=== PATIENT | female | born 1960 | race American Indian/Alaskan Native ===

== ENCOUNTER 2020-04-03 08:48 | Emergency (ER) | payer MEDICARE ==
[2020-04-03 08:53] VITALS: BP 135/96
[2020-04-03 09:13] LABS: Basophils # (Auto) 0.1 K/mm3 (0.0-0.1); Basophils % (Auto) 0.9 % (0.0-1.8); Eosinophils # (Auto) 0.2 K/mm3 (0.0-0.4); Hematocrit 42.4 % (30.3-42.9); Hemoglobin 13.8 gm/dl (10.1-14.3); Lymphocytes # (Auto) 2.9 K/mm3 (1.2-5.4); Lymphocytes % (Auto) 34.9 % (13.4-35.0); Mean Corpuscular HGB Conc 33 % (30-34); Mean Corpuscular Volume 88 fl (79-97); Monocytes # (Auto) 0.5 K/mm3 (0.0-0.8); Monocytes % (Auto) 6.6 % (0.0-7.3); Platelet Count 348 K/mm3 (140-440); Red Blood Count 4.81 M/mm3 (3.65-5.03); Red Cell Distribution Width 14.7 % (13.2-15.2)
[2020-04-03 09:29] LABS: Blood Urea Nitrogen 11 mg/dL (7-17); Calcium 10.7 mg/dL (8.4-10.2); Hemolysis Index 9
[2020-04-03 09:32] LABS: BUN/Creatinine Ratio 18
[2020-04-03 09:41] LABS: INR 0.9 (0.87-1.13)
[2020-04-03 09:42] LABS: Partial Thromboplastin Time 26.6 Sec. (24.2-36.6)
--- NOTE | 2020-04-03 10:08 | Emergency Department Report ---
ED Lower Extremity HPI - General Chief Complaint: Extremity Injury, Lower Stated Complaint: RT UPPER LEG PAIN Time Seen by Provider: 04/03/20 08:56 Source: patient, EMS Mode of arrival: Wheelchair Limitations: No Limitations - History of Present Illness Initial Comments: This is a 59-year-old female nontoxic, well nourished in appearance, no acute signs of distress presents to the ED with c/o of right leg pain several days. Patient denies any trauma or injuries. Patient denies any numbness, tingling, fever, chills, nausea, vomiting, chest pain, shortness of breath, headache, stiff neck. Patient denies any joint swelling or joint redness. Patient denies decreased range of motion. Patient stated has decreased gait due to pain. Patient denies any allergies, MD Complaint: leg injury -: days(s) Injury: Leg: Right Severity: mild Severity scale (0 -10): 3 Improves With: immobilization Worsens With: palpation Associated Symptoms: able to partially bear weight. denies: snap/pop sensation, swelling, numbness, tingling, unable to bear weight - Related Data Previous Rx's Medication Instructions Recorded Last Taken Type Naproxen 500 mg PO Q12H PRN #12 tablet 04/03/20 Unknown Rx Allergies Allergy/AdvReac Type Severity Reaction Status Date / Time No Known Allergies Allergy Unverified 04/03/20 08:50 ED Review of Systems ROS: Stated complaint: RT UPPER LEG PAIN Other details as noted in HPI Comment: All other systems reviewed and negative Constitutional: denies: chills, fever Eyes: denies: eye pain, eye discharge, vision change ENT: denies: ear pain, throat pain Respiratory: denies: cough, shortness of breath, wheezing Cardiovascular: denies: chest pain, palpitations Endocrine: no symptoms reported Gastrointestinal: denies: abdominal pain, nausea, diarrhea Genitourinary: denies: urgency, dysuria, discharge Musculoskeletal: denies: back pain, joint swelling, arthralgia Skin: denies: rash, lesions Neurological: denies: headache, weakness, paresthesias Psychiatric: denies: anxiety, depression Hematological/Lymphatic: denies: easy bleeding, easy bruising ED Past Medical Hx - Past Medical History Previous Medical History?: Yes Hx Hypertension: Yes Hx Asthma: Yes - Surgical History Past Surgical History?: No - Social History Smoking Status: Never Smoker Substance Use Type: None - Medications Home Medications: Home Medications Medication Instructions Recorded Confirmed Last Taken Type Naproxen 500 mg PO Q12H PRN #12 tablet 04/03/20 Unknown Rx ED Physical Exam - General Limitations: No Limitations General appearance: alert, in no apparent distress - Head Head exam: Present: atraumatic, normocephalic - Eye Eye exam: Present: normal appearance - Neck Neck exam: Present: normal inspection, full ROM - Respiratory Respiratory exam: Present: normal lung sounds bilaterally. Absent: respiratory distress, wheezes - Cardiovascular Cardiovascular Exam: Present: regular rate - Extremities Exam Extremities exam: Present: normal inspection, full ROM, tenderness, normal capillary refill. Absent: joint swelling, calf tenderness - Expanded Lower Extremity Exam Right Hip exam: Present: normal inspection, full ROM, external rotation, internal rotation, pelvic stability. Absent: tenderness, swelling, abrasion, laceration, ecchymosis, deformity, crepidus, dislocation, erythema, shortening Upper Leg exam: Present: normal inspection, full ROM, tenderness. Absent: swel ling, abrasion, laceration, ecchymosis, deformity, crepidus, dislocation, erythema Knee exam: Present: normal inspection, full ROM, full knee extension. Absent: swelling, abrasion, laceration, ecchymosis, deformity, crepidus, dislocation, erythema, effusion, pain w/ pronation/supination, posterior draw sign, pain/laxity with valgus, pain/laxity with varus Lower Leg exam: Present: normal inspection, full ROM. Absent: tenderness, swelling, abrasion, laceration, ecchymosis, deformity, crepidus, dislocation, erythema, palpable cord, Casimiro's sign Ankle exam: Present: normal inspection, full ROM. Absent: tenderness, swelling, abrasion, laceration, ecchymosis, deformity, crepidus, dislocation, erythema, anterior draw sign Foot/Toe exam: Present: normal inspection, full ROM. Absent: tenderness, swelling, abrasion, laceration, ecchymosis, deformity, crepidus, dislocation, erythema, amputation, puncture wound, foreign body, calcaneal tenderness, tenderness at base of 5th metatarsal, nail avulsion, subungual hematoma Neuro vascular tendon exam: Present: no vascular compromise Gait: Positive: observed and limited by pain 1 - Pain here - Back Exam Back exam: Present: normal inspection, full ROM. Absent: tenderness, CVA tenderness (R), CVA tenderness (L), muscle spasm, paraspinal tenderness, vertebral tenderness, rash noted - Neurological Exam Neurological exam: Present: alert, oriented X3 - Psychiatric Psychiatric exam: Present: normal affect, normal mood - Skin Skin exam: Present: warm, dry, intact, normal color. Absent: rash ED Course Vital Signs 04/03/20 08:50 Temperature 98.8 F Pulse Rate 68 Respiratory 16 Rate Blood Pressure 135/96 O2 Sat by Pulse 100 Oximetry - Reevaluation(s) Reevaluation #1: 04/03/20 10:12 Patient is speaking in full sentences with no signs of distress noted. ED Lower Extremity MDM - Lab Data Result diagrams: 04/03/20 09:02 04/03/20 09:02 Lab Results 04/03/20 04/03/20 04/03/20 Range/Units 09:02 09:02 09:02 WBC 8.2 (4.5-11.0) K/mm3 RBC 4.81 (3.65-5.03) M/mm3 Hgb 13.8 (10.1-14.3) gm/dl Hct 42.4 (30.3-42.9) % MCV 88 (79-97) fl MCH 29 (28-32) pg MCHC 33 (30-34) % RDW 14.7 (13.2-15.2) % Plt Count 348 (140-440) K/mm3 Lymph % (Auto) 34.9 (13.4-35.0) % [place] % (Auto) 6.6 (0.0-7.3) % Eos % (Auto) 2.0 (0.0-4.3) % Baso % (Auto) 0.9 (0.0-1.8) % Lymph # (Auto) 2.9 (1.2-5.4) K/mm3 [place] # (Auto) 0.5 (0.0-0.8) K/mm3 Eos # (Auto) 0.2 (0.0-0.4) K/mm3 Baso # (Auto) 0.1 (0.0-0.1) K/mm3 Seg Neutrophils % 55.6 (40.0-70.0) % Seg Neutrophils # 4.6 (1.8-7.7) K/mm3 PT 12.0 L (12.2-14.9) Sec. INR 0.90 (0.87-1.13) APTT 26.6 (24.2-36.6) Sec. Sodium 139 (137-145) mmol/L Potassium 4.2 (3.6-5.0) mmol/L Chloride 103.6 (98-107) mmol/L Carbon Dioxide 26 (22-30) mmol/L Anion Gap 14 mmol/L BUN 11 (7-17) mg/dL Creatinine 0.6 (0.6-1.2) mg/dL Estimated GFR > 60 ml/min BUN/Creatinine Ratio 18 % Glucose 78 (65-100) mg/dL Calcium 10.7 H (8.4-10.2) mg/dL - Radiology Data Referring Physician: ROSIE RUBIO Patient Name: CHUY SANON Date of : 1960 Sex: Female Report Date: 2020-04-03 Report Status: Finalized [place] [id number] Vascular Lab Report Signed Patient: CHUY SANON MR#: [id number] : 1960 Acct:[id number] Age/Sex: 59 / F ADM Date: 04/03/20 Loc: ED Attending Dr: Ordering Physician: ROSIE RUBIO NP Date of Service: 04/03/20 Procedure(s): VL venous duplex LE RT Accession Number(s): [id number] cc: ROSIE RUBIO NP DUPLEX DOPPLER LOWER EXTREMITY VEINS, RIGHT INDICATION / CLINICAL INFORMATION: right leg pain. TECHNIQUE: Duplex doppler imaging was performed through the veins of the right lower extremity using venous compression and other maneuvers. COMPARISON: None available. FINDINGS: RIGHT COMMON FEMORAL VEIN: Negative. RIGHT FEMORAL VEIN: Negative. RIGHT POPLITEAL VEIN: Negative. RIGHT CALF VEINS: Negative. ADDITIONAL FINDINGS: None. IMPRESSION: 1. No sonographic evidence for DVT in the right lower extremity. Signer Name: Freddy Horner MD Signed: 04/03/2020 9:46 AM Workstation Name: [id number] Transcribed By: Dictated By: FREDDY HORNER Electronically Authenticated By: FREDDY HORNER Signed Date/Time: 04/03/20945 DD/ 4 TD/TT: - Medical Decision Making This is a 59-year-old female that presents with left leg strain. Patient is stable and was examined by me. Doppler ultrasound has been obtained and dictated by the radiologist. Patient is notified of the ultrasound report with noted by the patient. Patient does have normal gait with no tenderness and no joint swelling. No ecchymosis. no joint redness or swelling. Not warm to touch. No signs of cellulites present. Labs unremarkable. Patient was instructed to RICE therapy. Patient is discharged with Naproxen. At time of discharge, the patient does not seem toxic or ill in appearance. No acute signs of distress noted. Patient agrees to discharge treatment plan of care. No further questions noted by the patient. Critical care attestation.: If time is entered above; I have spent that time in minutes in the direct care of this critically ill patient, excluding procedure time. ED Disposition Clinical Impression: Muscle strain of right lower leg Qualifiers: Encounter type: initial encounter Qualified Code(s): S86.911A - Strain of unspecified muscle(s) and tendon(s) at lower leg level, right leg, initial encounter Disposition: - TO HOME OR SELFCARE Is pt being admited?: No Does the pt Need Aspirin: No Condition: Stable Instructions: RICE Therapy for Routine Care of Injuries, [id number], Muscle Strain, [id number] Additional Instructions: Follow-up with a primary care doctor in 3-5 days or if symptoms worsen and continue return to emergency room as soon as possible. Prescriptions: Naproxen 500 mg PO Q12H PRN #12 tablet PRN Reason: Pain , Severe (7-10) Referrals: PRIMARY CAREMD [Primary Care Provider] - 3-5 Days FELIX SLATER MD [Staff Physician] - 3-5 Days Time of Disposition: 11:51
--- NOTE | 2020-04-03 11:47 | Vascular Lab Report ---
DUPLEX DOPPLER LOWER EXTREMITY VEINS, RIGHT INDICATION / CLINICAL INFORMATION: right leg pain. TECHNIQUE: Duplex doppler imaging was performed through the veins of the right lower extremity using venous comp ression and other maneuvers. COMPARISON: None available. FINDINGS: RIGHT COMMON FEMORAL VEIN: Negative. RIGHT FEMORAL VEIN: Negative. RIGHT POPLITEAL VEIN: Negative. RIGHT CALF VEINS: Negative. ADDITIONAL FINDINGS: None. IMPRESSION: 1. No sonographic evidence for DVT in the right lower extremity. Signer Name: Freddy Amaya MD Signed: 04/03/2020 9:46 AM Workstation Name: [id number]
== END 2020-04-03 14:49 | disposition home or self-care (01) ==
LOC: ED 08:48
DX: S86.911A Strain of unspecified muscle(s) and tendon(s) at lower leg level, right leg, initial encounter (principal); I10 Essential (primary) hypertension; J45.909 Unspecified asthma, uncomplicated; Z79.899 Other long term (current) drug therapy; X58.XXXA Exposure to other specified factors, initial encounter; Y93.89 Activity, other specified; Y92.89 Other specified places as the place of occurrence of the external cause; Y99.8 Other external cause status
CPT/HCPCS: 36415; 80048; 85025; 85610; 85730

== ENCOUNTER 2020-06-08 15:40 | Emergency (ER) | payer MEDICARE ==
[2020-06-08 16:32] VITALS: BP 140/87
--- NOTE | 2020-06-08 17:10 | Emergency Department Report ---
ED General Adult HPI - General Chief complaint: Headache Stated complaint: HYPERTENSIVE Time Seen by Provider: 06/08/20 17:02 Source: patient Mode of arrival: Ambulatory Limitations: No Limitations - History of Present Illness Initial comments: Patient is a 59-year-old female presents emergency room with complaints of a mild headache that occurred today. Patient states that she was nervous due to her daughter being in the emergency room and she wanted to stay with her in the ER and that is why she checked in today. She states that she is just worried about her daughter. She denies any significant headache currently. She states that she does have a history of hypertension and states that she has been out of her blood pressure medication for a few days. She states that she takes amlodipine. She states that she tried to make an appointment with her primary care doctor but had difficulty contacting them. She states that she has difficulty seeing far away but is not currently seeing an eye doctor. She denies any vision loss. She denies any chest pain, shortness of breath, fever, nausea, vomiting, diarrhea, numbness, weakness, speech disturbance, gait disturbance. No other past medical history. No allergies medications. - Related Data Previous Rx's Medication Instructions Recorded Last Taken Type Naproxen 500 mg PO Q12H PRN #12 tablet 04/03/20 Unknown Rx amLODIPine 5 mg PO DAILY #30 tab 06/08/20 Unknown Rx Allergies Allergy/AdvReac Type Severity Reaction Status Date / Time No Known Allergies Allergy Unverified 04/03/20 08:50 ED Review of Systems ROS: Stated complaint: HYPERTENSIVE Other details as noted in HPI Comment: All other systems reviewed and negative ED Past Medical Hx - Past Medical History Previous Medical History?: Yes Hx Hypertension: Yes Hx Asthma: Yes - Social History Smoking Status: Never Smoker Substance Use Type: None - Medications Home Medications: Home Medications Medication Instructions Recorded Confirmed Last Taken Type Naproxen 500 mg PO Q12H PRN #12 tablet 04/03/20 Unknown Rx amLODIPine 5 mg PO DAILY #30 tab 06/08/20 Unknown Rx ED Physical Exam - General Limitations: No Limitations General appearance: alert, in no apparent distress - Head Head exam: Present: atraumatic, normocephalic - Eye Eye exam: Present: other (cataracts present to the bilateral eyes). Absent: scleral icterus, conjunctival injection, nystagmus, periorbital swelling, periorbital tenderness - ENT ENT exam: Present: mucous membranes moist - Respiratory Respiratory exam: Present: normal lung sounds bilaterally. Absent: respiratory distress, wheezes, rales, rhonchi, stridor, chest wall tenderness, accessory muscle use, decreased breath sounds, prolonged expiratory - Cardiovascular Cardiovascular Exam: Present: regular rate, normal rhythm, normal heart sounds. Absent: systolic murmur, diastolic murmur, rubs, gallop - Neurological Exam Neurological exam: Present: alert, oriented X3, CN II-XII intact, normal gait. Absent: motor sensory deficit - Psychiatric Psychiatric exam: Present: normal affect, normal mood - Skin Skin exam: Present: warm, dry, intact ED Course Vital Signs 06/08/20 16:30 Temperature 98.3 F Pulse Rate 98 H Respiratory 16 Rate Blood Pressure 140/87 O2 Sat by Pulse 99 Oximetry ED Medical Decision Making - Medical Decision Making Patient is a 59-year-old female presents emergency room with complaints of a mild headache that occurred today. Patient states that she was nervous due to her daughter being in the emergency room and she wanted to stay with her in the ER and that is why she checked in today. She states that she is just worried about her daughter. She denies any significant headache currently. She states that she does have a history of hypertension and states that she has been out of her blood pressure medication for a few days. She states that she takes amlodipine. She states that she tried to make an appointment with her primary care doctor but had difficulty contacting them. She states that she has difficulty seeing far away but is not currently seeing an eye doctor. She denies any vision loss. She denies any chest pain, shortness of breath, fever, nausea, vomiting, diarrhea, numbness, weakness, speech disturbance, gait disturbance. No other past medical history. No allergies medications. Vitals are stable. Blood pressure is stable. Patient has bilateral cataracts, no focal neuro deficits on exam. Patient is currently asymptomatic. She states that she was mostly just concerned about her daughter and wanted to sit with her daughter in the emergency room. She states that "she feels fine currently." Patient given refill of her home medication. Discussed the importance of primary care and ophthalmology follow-up. Advised patient Please take medication as prescribed. Increase your water intake. Please follow-up with your primary care doctor. Eat a low-sodium diet. Follow-up with pest control chemical technician regarding the cataracts in your eyes. Return to emergency room for any worsening symptoms. Critical care attestation.: If time is entered above; I have spent that time in minutes in the direct care of this critically ill patient, excluding procedure time. ED Disposition Clinical Impression: Non-compliance HTN (hypertension) Qualifiers: Hypertension type: unspecified Qualified Code(s): I10 - Essential (primary) hypertension Cataracts, bilateral Qualifiers: Cataract type: unspecified Qualified Code(s): H26.9 - Unspecified cataract Disposition: DC TO HOME OR SELFCARE Is pt being admited?: No Does the pt Need Aspirin: No Condition: Stable Instructions: Managing Your Hypertension, Hypertension (ED) Additional Instructions: Please take medication as prescribed. Increase your water intake. Please follow-up with your primary care doctor. Eat a low-sodium diet. Follow-up with pest control chemical technician regarding the cataracts in your eyes. Return to emergency room for any worsening symptoms. Prescriptions: amLODIPine 5 mg PO DAILY #30 tab Referrals: FELIX SLATER MD [Staff Physician] - 3-5 Days [facility] [Provider Group] - 3-5 Days [facility] [Provider Group] - 3-5 Days MARLENY BROOKS MD [Staff Physician] - 3-5 Days Time of Disposition: 17:22 Print Language: [place]
== END 2020-06-08 17:30 | disposition home or self-care (01) ==
LOC: ED 15:40
DX: I10 Essential (primary) hypertension (principal); H26.9 Unspecified cataract; Z91.19 Patient's noncompliance with other medical treatment and regimen; J45.909 Unspecified asthma, uncomplicated; Z79.899 Other long term (current) drug therapy
CPT/HCPCS: 99281